=== PATIENT | male | born 1995 | race Caucasian/White ===

== ENCOUNTER 2017-03-30 19:38 | Emergency (ER) | payer OTHER ==
[2017-03-30 19:43] VITALS: BP 131/53; PULSE 100; BMI 26.4
[2017-03-30] MEDS ORDERED: IBUPROFEN 400 MG TABLET (FP) PO ONE (20:17)
--- NOTE | 2017-03-30 20:17 | PDOC ---
History of Present Illness - General Chief Complaint: Cold Symptoms Stated Complaint: COLD SYMPTOMS Time Seen by Provider: 03/30/17 19:54 History Source: Patient Exam Limitations: No Limitations - History of Present Illness Initial Comments: 03/30/17 20:28 Patient is a 21 y/o M with no PMH who presents to the ED with two days of fever , chills, body aches, sore throat and ear pain. He has been taking alkaseltzer fever kettle skimmer with some relief. He did not get the flu shot this year. Denies shortness of breath, difficulty breathing, nausea, vomiting, diarrhea. Past History - Travel Traveled outside of the country in the last 30 days: No Close contact w/someone who was outside of country & ill: No - Past Medical History Allergies/Adverse Reactions: Allergies Allergy/AdvReac Type Severity Reaction Status Date / Time No Known Allergies Allergy Verified 03/30/17 19:43 Home Medications: Ambulatory Orders Ibuprofen 800 mg PO TID #30 tablet 03/30/17 Oseltamivir Phosphate [Tamiflu] 75 mg PO BID #10 capsule 03/30/17 - Immunization History Immunization Up to Date: Yes - Suicide/Smoking/Psychosocial Hx Smoking Status: No Smoking History: Unknown if ever smoked Have you smoked in the past 12 months: No Number of Cigarettes Smoked Daily: 0 Information on smoking cessation initiated: No Hx Alcohol Use: No Drug/Substance Use Hx: No Review of Systems - Review of Systems Able to Perform ROS?: Yes Comments:: 03/30/17 20:31 CONSTITUTIONAL: Present: fever, chills Absent: diaphoresis, generalized weakness, malaise, loss of appetite HEENT: Present: rhinorrhea, nasal congestion, throat pain, ear pain Absent: throat swelling, difficulty swallowing, mouth swelling, eye pain, visual Changes CARDIOVASCULAR: Absent: chest pain, loss of consciousness, palpitations, irregular heart rate, peripheral edema RESPIRATORY: Present: cough Absent: shortness of breath, dyspnea with exertion, orthopnea, wheezing, stridor, hemoptysis GASTROINTESTINAL: Absent: abdominal pain, abdominal distension, nausea, vomiting, diarrhea, constipation, melena, hematochezia GENITOURINARY: Absent: dysuria, frequency, urgency, hesitancy, hematuria, flank pain, genital pain MUSCULOSKELETAL: Absent: myalgia, arthralgia, joint swelling SKIN: Absent: rash, itching, pallor HEMATOLOGIC/IMMUNOLOGIC: Absent: easy bleeding, easy bruising, lymphadenopathy, frequent infections ENDOCRINE: Absent: unexplained weight gain, unexplained weight loss, heat intolerance, cold intolerance NEUROLOGIC: Absent: headache, focal weakness or paresthesias, dizziness, unsteady gait, seizure, mental status changes, bladder or bowel incontinence PSYCHIATRIC: Absent: anxiety, depression, suicidal or homicidal ideation, hallucinations. Is the patient limited Qatari proficient: No *Physical Exam - Vital Signs Last Vital Signs Temp Pulse Resp BP Pulse Ox 102.3 F H 100 H 16 131/53 97 03/30/17 19:40 03/30/17 19:40 03/30/17 19:40 03/30/17 19:40 03/30/17 19:40 - Physical Exam Comments: 03/30/17 20:32 GENERAL: Well developed, well nourished. Awake and alert. No acute distress. HEENT: Normocephalic, atraumatic. PERRLA, EOMI. No conjunctival pallor. Sclera are non- icteric. Moist mucous membranes. Oropharynx with posterior erythema NECK: Supple. Full ROM. No JVD. Carotid pulses 2+ and symmetric, without bruits. No thyromegaly. No lymphadenopathy. CARDIOVASCULAR: Tachycardic. Regular rhythm. No murmurs, rubs, or gallops. Distal pulses are 2+ and symmetric. PULMONARY: No evidence of respiratory distress. Lungs clear to auscultation bilaterally. No wheezing, rales or rhonchi. ABDOMINAL: Soft. Non-tender. Non-distended. No rebound or guarding. No organomegaly. Normoactive bowel sounds. MUSCULOSKELETAL Normal range of motion at all joints. No bony deformities or tenderness. No CVA tenderness. EXTREMITIES: No cyanosis. No clubbing. No edema. No calf tenderness. SKIN: Warm and dry. Normal capillary refill. No rashes. No jaundice. NEUROLOGICAL: Alert, awake, appropriate. Cranial nerves 2-12 intact. No deficits to light touch and temperature in face, upper extremities and lower extremities. No motor deficits in the in face, upper extremities and lower extremities. Normoreflexic in the upper and lower extremities. Normal speech. Toes are down- going bilaterally. Gait is normal without ataxia. PSYCHIATRIC: Cooperative. Good eye contact. Appropriate mood and affect. Medical Decision Making - Medical Decision Making 03/30/17 20:32 Patient is a 21-year-old male with no past medical history who presents today for flulike symptoms. Temp of 102.3 from triage. Will treat with ibuprofen at this time. We'll also obtain rapid strep and rapid flu testing. Reevaluate 03/30/17 21:20 Pt. is flu A positive. Will treat with tamiflu. D/c home with supportive therapy. Pt and mother understand all d.c instructions and all questions were answered at this time. *DC/Admit/Observation/Transfer Diagnosis at time of Disposition: Influenza A - Discharge Dispostion Disposition: HOME Condition at time of disposition: Stable Admit: No - Prescriptions Prescriptions: Ibuprofen 800 mg PO TID #30 tablet Oseltamivir Phosphate [Tamiflu] 75 mg PO BID #10 capsule - Referrals Referrals: Kimberlee Merritt [Primary Care Provider] - - Patient Instructions Printed Discharge Instructions: DI for Influenza -- Adult Additional Instructions: You have the flu. Please take Tamiflu starting tonight. He'll take this medication twice a day for 5 days. Expect to feel sick for approximately 7-10 days. Please take ibuprofen 800 mg every 8 hours to help with fever and pain. Drink plenty of fluids. Get plenty of rest. [id number] NyQuil may be used as well. Please follow-up with your primary care doctor later this week. Return to the emergency department if you have difficulty breathing, shortness of breath, increased weakness, or any changes in her symptoms. - Post Discharge Activity Forms/Work/School Notes: Back to School
[2017-03-30 21:22] VITALS: TEMP 100.9
== END 2017-03-30 21:30 | disposition home or self-care (01) ==
LOC: JERFT 19:38
DX: J09.X2 Influenza due to identified novel influenza A virus with other respiratory manifestations (principal)
CPT/HCPCS: 87070; 87430; 87804; 99281-25

== ENCOUNTER 2017-09-08 21:56 | Emergency (ER) | payer OTHER ==
[2017-09-08 22:09] VITALS: BP 154/78; PULSE 69; TEMP 98.1; BMI 34.2
--- NOTE | 2017-09-08 22:21 | PDOC ---
History of Present Illness - General History Source: Patient Exam Limitations: No Limitations - History of Present Illness Initial Comments: 09/09/17 01:40 Patient is a 22 year old male with a significant past medical history of who presents to the ED with complaints of nose pain that began just prior to ED arrival. Patient reports playing basketball earlier this afternoon when he was elbowed in the face causing immediate pain. He reports experiencing mucus leaking from nose secondary to njury prompting him to come into the ED for further evaluation. Patient reports being concerned that liquid leaking from nose was cerebral spinal fluid. Denies chest pain, Sob. Denies nausea, vomiting. Denies contact with sick individuals, out of state travelling. Denies any other symptoms. Allergies: None Social history: No smoking. No alcohol. No illicit drugs. Surgical history: None PMD: None <Marshall Mcneal - Last Filed: 09/09/17 01:40> <Deanna Chin - Last Filed: 09/09/17 05:09> - General Chief Complaint: Bone Injury Stated Complaint: NOSE INJURY Time Seen by Provider: 09/08/17 22:18 Past History <Marshall Mcneal - Last Filed: 09/09/17 01:40> - Past Medical History CVA: No COPD: No - Immunization History Immunization Up to Date: Yes - Suicide/Smoking/Psychosocial Hx Smoking Status: No Smoking History: Never smoked Have you smoked in the past 12 months: No Number of Cigarettes Smoked Daily: 0 Information on smoking cessation initiated: No Hx Alcohol Use: No Drug/Substance Use Hx: No Substance Use Type: None <Deanna Chin - Last Filed: 09/09/17 05:09> - Past Medical History Allergies/Adverse Reactions: Allergies Allergy/AdvReac Type Severity Reaction Status Date / Time No Known Allergies Allergy Verified 03/30/17 19:43 Home Medications: Ambulatory Orders Ibuprofen 800 mg PO TID #30 tablet 03/30/17 Oseltamivir Phosphate [Tamiflu] 75 mg PO BID #10 capsule 03/30/17 Review of Systems - Review of Systems Able to Perform ROS?: Yes Comments:: 09/09/17 01:40 GENERAL/CONSTITUTIONAL: No fever or chills. No weakness. HEAD, EYES, EARS, NOSE AND THROAT: +Nose pain. No change in vision. No ear pain or discharge. No sore throat. CARDIOVASCULAR: No chest pain or shortness of breath. RESPIRATORY: No cough, wheezing, or hemoptysis. GASTROINTESTINAL: No nausea, vomiting, diarrhea or constipation. GENITOURINARY: No dysuria, frequency, or change in urination. MUSCULOSKELETAL: No joint or muscle swelling or pain. No neck or back pain. SKIN: No rash NEUROLOGIC: No headache, vertigo, loss of consciousness, or change in strength/ sensation. ENDOCRINE: No increased thirst. No abnormal weight change. HEMATOLOGIC/LYMPHATIC: No anemia, easy bleeding, or history of blood clots. ALLERGIC/IMMUNOLOGIC: No hives or skin allergy. <Marshall Mcneal - Last Filed: 09/09/17 01:40> *Physical Exam - Vital Signs Last Vital Signs Temp Pulse Resp BP Pulse Ox 98.1 F 69 16 154/78 98 09/08/17 22:06 09/08/17 22:06 09/08/17 23:08 09/08/17 22:06 09/08/17 22:06 - Physical Exam Comments: 09/09/17 01:40 GENERAL: Awake, alert, and fully oriented, in no acute distress HEAD: No signs of trauma EYES: PERRLA, EOMI, sclera anicteric, conjunctiva clear ENT:+No facial swelling. +Minimal redness on right bridge of nose. Auricles normal inspection, hearing grossly normal, nares patent, oropharynx clear without exudates. Moist mucosa NECK: Normal ROM, supple, no lymphadenopathy, JVD, or masses LUNGS: Breath sounds equal, clear to auscultation bilaterally. No wheezes, and no crackles HEART: Regular rate and rhythm, normal S1 and S2, no murmurs, rubs or gallops ABDOMEN: Soft, nontender, normoactive bowel sounds. No guarding, no rebound. No masses EXTREMITIES: Normal range of motion, no edema. No clubbing or cyanosis. No cords, erythema, or tenderness NEUROLOGICAL: Cranial nerves II through XII grossly intact. Normal speech, normal gait SKIN: Warm, Dry, normal turgor, no rashes or lesions noted. <Marshall Mcneal - Last Filed: 09/09/17 01:40> - Vital Signs Last Vital Signs Temp Pulse Resp BP Pulse Ox 98.1 F 69 20 154/78 98 09/08/17 22:06 09/08/17 22:06 09/08/17 22:06 09/08/17 22:06 09/08/17 22:06 <Deanna Chin - Last Filed: 09/09/17 05:09> Medical Decision Making - Medical Decision Making 09/09/17 01:17 Patient Name: ROME MCCORMICK THIS IS A PRELIMINARY REPORT FROM [facility]GRAM ENGAGEMENT DIRECTOR DATE OF SERVICE: 2017-09-09 00:49:18 IMAGES: 341 EXAM: ct FACIAL BONES CT W/O CONTRAST HISTORY: Concern for fracture COMPARISON: None. FINDINGS: Nasal Bones: There is a right-sided minimally displaced nasal bone fracture. The nasal septum and anterior spine are intact Orbits and globes: normal Zygomatic areches: Normal with no fracture Mandaible:Normal with no fracture Soft tissues: Normal IMPRESSION: Minimally displaced nasal bone fracture Individualized dose optimization techniques were used for this CT. THIS DOCUMENT HAS BEEN ELECTRONICALLY SIGNED 09/09/17 05:09 Pt can follow with ENT as an outpatient. <Deanna Chin - Last Filed: 09/09/17 05:09> *DC/Admit/Observation/Transfer - Attestations Scribe Attestion: 09/09/17 01:40 Documentation prepared by Marshall Mcneal, acting as medical lab technologist for Deanna Chin MD. <Marshall Mcneal - Last Filed: 09/09/17 01:40> - Discharge Dispostion Decision to Admit order: No <Deanna Chin - Last Filed: 09/09/17 05:09> Diagnosis at time of Disposition: Broken nose - Discharge Dispostion Disposition: HOME Condition at time of disposition: Stable - Referrals Referrals: Kimberlee Merritt [Primary Care Provider] - Anthony Funes MD [Staff Physician] - - Patient Instructions - Post Discharge Activity
== END 2017-09-09 01:35 | disposition home or self-care (01) ==
LOC: JER 21:56
DX: S02.2XXA Fracture of nasal bones, initial encounter for closed fracture (principal); W50.0XXA Accidental hit or strike by another person, initial encounter; Y93.67 Activity, basketball; Y92.310 Basketball court as the place of occurrence of the external cause; Y99.8 Other external cause status
CPT/HCPCS: 70486-TC; 99282-25

== ENCOUNTER 2020-10-18 10:41 | Emergency (ER) | payer OTHER ==
[2020-10-18 10:54] VITALS: BMI 25.0
[2020-10-18] MEDS ORDERED: SODIUM CHLORIDE 1,000 ML IV STA (11:55)
[2020-10-18] MEDS ORDERED: ACETAMINOPHEN 500 MG TABLET (FP) PO ONE (11:57)
[2020-10-18 13:32] LABS: BASO % 0.4 % (0-2.0); EOS % 0.1 % (0-4.5); HEMATOCRIT 45.2 % (35.4-49); HEMOGLOBIN 15.9 GM/dL (11.7-16.9); LYMPH % 20.7 % (8-40); MCH 30.5 pg (25.7-33.7); MCHC 35.1 g/dl (32.0-35.9); MEAN CELL VOLUME 86.8 fl (80-96); MONO % 11.6 % (3.8-10.2); NEUT % 67.2 % (42.8-82.8); PLATELET COUNT 134 10^3/uL (134-434); RDW 12.7 % (11.9-15.9); WHITE BLOOD COUNT 7.7 K/mm3 (4.0-10.0)
[2020-10-18 13:55] LABS: ALBUMIN 4.5 g/dl (3.4-5.0); CALCIUM 8.7 mg/dL (8.5-10.1)
[2020-10-18 13:56] LABS: BLOOD UREA NITROGEN 13.2 mg/dL (7-18)
[2020-10-18 13:59] LABS: CREATININE 1.2 mg/dL (0.55-1.3)
[2020-10-18 14:00] LABS: BILIRUBIN,TOTAL 1.2 mg/dL (0.2-1); TOT PROT 7.8 g/dl (6.4-8.2)
[2020-10-18 16:09] VITALS: BP 129/78; PULSE 89; TEMP 100.3
== END 2020-10-18 16:09 | disposition home or self-care (01) ==
LOC: JER 10:41
PROC: 3E0337Z Introduction of Electrolytic and Water Balance Substance into Peripheral Vein, Percutaneous Approach (ICD-10-PCS; principal; 2020-10-18)
DX: U07.1 COVID-19 (principal)
CPT/HCPCS: 36415; 80053; 85025; 99284-25; C9803; U0003; U0005